=== PATIENT | male | born 2000 | race Caucasian/White ===

== ENCOUNTER 2023-08-05 12:04 | Emergency (ER) | payer BC, SELFPAY ==
--- NOTE | ~2023-08-05 | XR_ITS ---
EXAMINATION: XR knee LT min 4V DATE: 08/05/2023 12:27 INDICATION: Generalized left knee pain post fall TECHNIQUE: Anteroposterior, sunrise, oblique and crosstable lateral views of the affected knee were o btained COMPARISON: None. FINDINGS: Alignment is normal. Normal variant bipartite patella with unfused superolateral accessory apophyseal center. No fracture. Joint spaces appear normal on nonweightbearing imaging. No joint effusion/layer ing lipohemarthrosis. Soft tissues are unremarkable. IMPRESSION: 1. Normal variant bipartite left patella. No left knee joint effusion or acute osseous abnormalities. Reviewed, dictated and finalized at location A.
[2023-08-05 12:05] VITALS: BP 124/70; PULSE 75; RESP 20; TEMP 36.6; O2SAT 99
[2023-08-05 13:20] VITALS: BP 132/68; PULSE 71; RESP 17; O2SAT 100
--- NOTE | 2023-08-05 13:38 | ED.LOWEXIN ---
HPI - Extremity Injury (Lower) General Chief Complaint: Extremity Injury, Lower Stated Complaint: think I tore something on my knee Time Seen by Provider: 08/05/23 13:37 Source: patient Mode of arrival: ambulatory Limitations: no limitations History of Present Illness HPI Narrative: Freddy is a 23-year-old male patient presenting to the ER today with complaints left knee pain. He reports that he was playing basketball last night and felt a pop in his lateral knee. Is having pain with full flexion or full extension of the left knee over the LCL. Review of Systems Review of Systems: Pertinent positives per HPI. Patient denies any fever, chills, rash, headache, visual changes, dizziness, cough, runny nose, sore throat, shortness of breath, chest pain, palpitations, nausea, vomiting, diarrhea, constipation, abdominal pain, or any urinary issues. PMFSH Comments At the time of my signature, I reviewed and agree with the nursing past medical, surgical, social, and family history. There is no relevant family history pertinent to the patient complaint. Exam Narrative: General: Well-developed, well nourished, in no apparent distress Head: Normocephalic, atraumatic. Cardio: Regular rate and rhythm, s1 and s2 normal, no murmur appreciated. Resp: Clear to auscultation bilaterally, no rhonchi, rales, wheezing or rubs. Musculoskeletal: No deformity, tender to palpation over the LCL, mild pain with valgus varus testing over the LCL, negative anterior-posterior drawer test, no obvious swelling, grossly normal range of motion, muscle strength strong and equal, peripheral pulse strong, no edema, no cyanosis, normal gait and station Course Course Emergency Course: Portions of this record may have been created with voice recognition software. Vital Signs Vital signs: Vital Signs Temperature 36.6 C 08/05/23 12:05 Pulse Rate 75 08/05/23 12:05 Respiratory Rate 20 08/05/23 12:05 Blood Pressure 124/70 08/05/23 12:05 Pulse Oximetry 99 08/05/23 12:05 Oxygen Delivery Room Air 08/05/23 12:05 Temperature 36.6 C 08/05/23 12:05 Pulse Rate 71 08/05/23 13:20 Respiratory Rate 17 08/05/23 13:20 Blood Pressure 132/68 08/05/23 13:20 Pulse Oximetry 100 08/05/23 13:20 Oxygen Delivery Room Air 08/05/23 12:05 Vital signs reviewed MDM - Extremity Injury (Lower) MDM Narrative Medical decision making narrative: At the time of visit patient is resting comfortably on the exam table. Patient appears to be nontoxic. Diagnostics: Left knee x-ray was performed and shows no sign of acute fracture, malalignment, or joint effusion. Plan: I suspect patient has an LCL sprain. Saul wrap was applied. Supportive measures were discussed with the patient and they voiced understanding discharge instructions and agrees to treatment plan. Return precautions reviewed Differential Diagnosis Differential diagnosis: Likely acute internal derangement of knee and other (LCL sprain, knee fracture, joint effusion) Imaging Data Radiologist's impression: ITS Impressions Knee X-Ray 08/05/23 12:33 IMPRESSION: 1. Normal variant bipartite left patella. No left knee joint effusion or acute osseous abnormalities. Discharge Plan Discharge Clinical Impression: Knee LCL sprain Qualifiers: Encounter type: initial encounter Laterality: left Qualified Code(s): S83.422A - Sprain of lateral collateral ligament of left knee, initial encounter Patient Disposition: Home, Self-Care Condition: Stable Instructions: Antibiotic Form, Knee Sprain (ED), Hinged Knee Brace (ED) Additional Instructions: Rest, ice, elevate, and wear saul wrap as directed Wear hinged knee brace when up ambulating x1 week Tylenol/motrin for pain as discussed. Gradually bear weight No running or sports until healed. Follow up with your PCP if symptoms persist more than 1 week. May need referral to orthopedic provider for MRI if
[2023-08-05 14:13] VITALS: BP 119/74; PULSE 64; RESP 18; TEMP 36.8; O2SAT 100
--- NOTE | 2023-08-11 12:19 | PC.NURSE ---
LATE ENTRY This note is being entered to document information to the patient's record. The following information was omitted on [08/05/23], by [Viri Hearn RN]. Wound injury clarification corrected to Left Knee for injury.
== END 2023-08-05 14:14 | disposition home or self-care (01) ==
PROVIDERS: Emergency Provider Nurse Practitioner Family
DX: S83.422A Sprain of lateral collateral ligament of left knee, initial encounter (principal); T14.90XA Injury, unspecified, initial encounter
CPT/HCPCS: 73564; 99283